=== PATIENT | male | born 1985 | race Caucasian/White ===

== ENCOUNTER 2018-06-08 12:27 | Outpatient (CLI) | payer OTHER ==
[~2018-06-08 12:27] MED LIST: GADOPENTETATE DIMEGLUMINE 5 ML VIAL IVP ONE; IOTHALAMATE MEGLUMINE 50 ML VIAL ONE
[2018-06-08] MEDS ORDERED: BUFFERED LIDOCAINE 10 ML SYRINGE IU ONE (13:31)
[2018-06-08] MEDS ORDERED: IOTHALAMATE MEGLUMINE 50 ML VIAL IVP ONE (13:31)
[2018-06-08] MEDS ORDERED: GADOPENTETATE DIMEGLUMINE 5 ML VIAL IVP ONE (13:31)
--- NOTE | 2018-06-08 15:43 | XRAY Report ---
Reason: PAIN IN UNSPECIFIED SHOULDER Procedure Date: 06/08/2018 Accession Number: [id number] / [id number] Procedure: FL - Arthrogram Needle Placement CPT Code: FULL RESULT: EXAM: LEFT SHOULDER ARTHROGRAPHIC INJECTION WITH FLUOROSCOPIC GUIDANCE EXAM DATE: 06/08/2018 12:37 PM. CLINICAL HISTORY: Left shoulder pain. COMPARISON: None. TECHNIQUE: The risks, benefits, and alternatives of the procedure were discussed with the patient. All questions were answered. Written and verbal consent were obtained. The glenohumeral joint was marked under fluoroscopy and prepped and draped in a sterile manner. Local anesthesia was performed with 1% lidocaine. A 22-gauge needle was then inserted into the glenohumeral joint. 10 mL of a solution containing 25% 1% lidocaine, 25% iodinated contrast, and a 1:200 dilution of gadolinium contrast in sterile saline was then injected. The needle was removed without immediate complication. Other: None. Fluoroscopy Time: 50 seconds. Number of Images: 1. FINDINGS: Bones and joints: No fracture or subluxation. Injection: Fluoroscopic images demonstrate needle placement and contrast in the glenohumeral joint. No contrast extravasation outside of the glenohumeral joint. IMPRESSION: Successful fluoroscopically-guided arthrographic injection of the shoulder. [facility]
--- NOTE | 2018-06-08 21:58 | MRI Report ---
Reason: PAIN IN UNSPECIFIED SHOULDER Procedure Date: 06/08/2018 Accession Number: [id number] / [id number] Procedure: MRI - Arthrogram Shoulder LT CPT Code: FULL RESULT: EXAM: LEFT SHOULDER MRI ARTHROGRAM WITH CONTRAST EXAM DATE: 06/08/2018 01:56 PM. CLINICAL HISTORY: Left shoulder pain. COMPARISON: None. TECHNIQUE: Multiplanar, multisequence T1-weighted and fluid-sensitive sequences of the shoulder after an arthrographic injection of dilute gadolinium, dictated under a separate exam. Other: None. FINDINGS: Acromioclavicular Region: The acromion is type I. The acromioclavicular joint is unremarkable. The coracoacromial and coracoclavicular ligaments are intact. There is no contrast or fluid in the subacromial/subdeltoid bursa. Glenohumeral Region: No subluxation. No loose bodies. The articular cartilage is unremarkable. The glenohumeral ligaments and joint capsule are unremarkable. Bone Marrow: Small bone island at the superior aspect of the humeral head. Tiny subcortical cysts at the posterior superior aspect of the humeral head. No acute fracture. Labrum: Contrast solution abnormally extends into the superior aspect of the labrum consistent with a type II SLAP tear. The remaining labrum is unremarkable. Biceps Tendon: The long head of the biceps tendon and biceps ainsley are intact. Musculature/Rotator Cuff: The subscapularis, supraspinatus, infraspinatus, and teres minor tendons are intact. Mild edema within the posterior aspect of the supraspinatus muscle. No muscle fatty atrophy. Other: The subcutaneous tissues are unremarkable. IMPRESSION: 1. SLAP type II tear of the labrum. 2. No rotator cuff tear. 3. Mild edema within the posterior aspect of the supraspinatus muscle which may represent strain or inflammation. [facility] MUSCULOSKELETAL RADIOLOGY SECTION
== END 2018-06-08 12:28 | disposition home or self-care (01) ==
LOC: DI 12:27
PROVIDERS: ATTEND Radiology Diagnostic Radiology
DX: S43.432A Superior glenoid labrum lesion of left shoulder, initial encounter (principal); R60.0 Localized edema
CPT/HCPCS: 23350; 73222; 77002; Q9961

== ENCOUNTER 2018-07-29 10:04 | Day surgery (SDC) | payer OTHER ==
--- NOTE | 2018-07-29 07:52 | ANESTHESIA ---
Pre-Anesthesia VS, & Labs - Diagnosis L shoulder biceps tendinitis, slap tear, lateral subscapularis tear - Procedure L shoulder arthroscopy with SLAP repair, open biceps tenodesis/possible subscapularis repair Height 69 ft Weight (kg) 88.45 kg - NPO >8 hours Home Medications and Allergies Home Medications: Ambulatory Orders Rabeprazole Sodium [Aciphex] 40 mg PO DAILY 07/22/18 Rabeprazole Sodium [Aciphex] 40 mg PO DAILY 07/22/18 Allergies/Adverse Reactions: Allergies Allergy/AdvReac Type Severity Reaction Status Date / Time Sulfa (Sulfonamide AdvReac Severe Nausea Verified 07/22/18 16:05 Antibiotics) Anes History & Medical History - Medical History Cardiovascular: reports: None Pulmonary: reports: None Gastrointestinal: reports: GERD Urinary: reports: None Musculoskeletal: reports: Other Endocrine/Autoimmune: reports: None Skin: reports: None Smoking Status: Never smoker - Surgical History General: Other Orthopedic: Shoulder arthroplasty Exam General: Alert, Oriented x3, Cooperative, No acute distress Dental: WNL Mouth Opening: Greater than 4 Fingerbreadths Neck Mobility: Normal Mallampati classification: II Thyromental Distance: 4-6 cm Respiratory: Lungs clear, Normal breath sounds, No respiratory distress Cardiovascular: Regular rate Neurological: Normal speech Mental/Cognitive Status: Alert/Oriented X3 Plan Anesthesia Type: Supraclavicular Block Regional Block: Per Surgeon's request for Post Op pain control Consent for Procedure(s) Verified and Reviewed: Yes Code Status: Attempt Resuscitation ASA classification: 2-Mild systemic disease Is this case an emergency?: No
[~2018-07-29 10:04] MED LIST changes: +BUPIVACAINE 0.25% PF 30 ML VIAL ONE; +EPINEPHrine 1 MG/ML AMP ONE; -GADOPENTETATE DIMEGLUMINE 5 ML VIAL IVP ONE; -IOTHALAMATE MEGLUMINE 50 ML VIAL ONE; +SODIUM CHLORIDE 0.9% 10 ML ONE; +cefTRIAXone 1 GM VIAL ONE
[2018-07-29] MEDS ORDERED: LACTATED RINGERS 1,000 ML IV ONE ×2 (10:09→12:34)
[2018-07-29] MEDS ORDERED: DEXAMETHASONE 4 MG/ML VIAL IVP ONE (11:00)
[2018-07-29] MEDS ORDERED: PROPOFOL 200 MG/20 ML VIAL IVP ONE (11:00)
[2018-07-29] MEDS ORDERED: NEOSTIGMINE 1 MG/1 ML 10 ML MDV IVP ONE (11:00)
[2018-07-29] MEDS ORDERED: ONDANSETRON 4 MG/2 ML VIAL IVP ONE (11:00)
[2018-07-29] MEDS ORDERED: GLYCOPYRROLATE 1 MG/5 ML VIAL IVP ONE (11:00)
[2018-07-29] MEDS ORDERED: ROPIVACAINE 0.5% PF 20 ML AMPULE EP ONE (11:00)
[2018-07-29] MEDS ORDERED: ROCURONIUM 50 MG/5 ML VIAL IVP ONE (11:00)
[2018-07-29] MEDS ORDERED: LIDOCAINE-MPF 2% 5 ML VIAL IM ONE (11:00)
[2018-07-29] MEDS ORDERED: fentaNYL 100 MCG/2 ML VIAL IVP ONE (11:00)
[2018-07-29] MEDS ORDERED: MIDAZOLAM 2 MG/2 ML VIAL IVP ONE (11:00)
--- NOTE | 2018-07-29 11:20 | OPERATIVE REPORT ---
Operative Report - General Planned Procedure: Left shoulder arthroscopy, open sub pec biceps tenodesis Pre-Op Diagnosis: Left shoulder SLAP tear, possible subscap tear Procedure Performed: Left shoulder arthroscopy, open sub-pec biceps tenodesis, SLAP debridement Post Op Diagnosis: Left shoulder SLAP tear - Procedure Note Primary Surgeon: Kristian Suarez MD Secondary Surgeon: Rogelio Paredes MD Anesthesia Technique: General LMA, Regional block Estimated Blood Loss (mL): 20 Complications: None - Other Other Information/Narrative: Indications: 32yo RHD M with a hx of left shoulder pain following injury. MRI and clinical exam consistent with SLAP tear/biceps tendinitis. He failed appropriate non-operative management and desired surgical treatment. He previously had a right SLAP tear surgically treated by a civilian provider in [place] in the past. Risks of surgery were discussed to include bleeding, infection, damage to nerves, vessels, cartilage, tendons and ligaments, cartilage, bone, postoperative stiffness, need for extensive rehabilitation, implant failure, implant irritation, possible intraoperative fracture, medication side effects and allergic reactions, anesthesia complications, as well as blood clots to include deep vein thrombosis, pulmonary embolus and even . After a long discussion, they wished to proceed. Preoperative examination under anesthesia: Forward flexion 175, abduction 170, external rotation 60, abducted external rotation 90, abducted internal rotation 90. Load and shift anterior grade 1, posterior grade 1, inferior negative. Arthroscopic findings: 1. Biceps: Inferior instability and biceps ainsley. 2. Superior labrum: Type II SLAP tear with degeneration/fraying 3. Anterior labrum: Intact 4. Posterior labrum: Intact 5. Rotator cuff: Normal 6. Chondral surfaces: Humeral head normal. Glenoid normal. 7. Capsule: Appropriate Implants: [employer] FiberTak all-suture anchor with #2 Fiberwire Procedure Details: The patient was met in the preoperative hold area. We discussed risks, benefits, and alternatives to surgery. We discussed the proposed procedure and reviewed the consent. Questions were answered. Consent was verified. The patient verified the surgical site as the left shoulder and it was initialed by myself. The patient then met with anesthesia and a regional block was performed. The patient was brought back to the operating room. The patient was transferred onto the operating table and placed into the supine position. A general anesthetic was administered and an LMA was placed. The patient was then positioned in the lateral position on a beanbag. An axillary roll was placed and all bony prominences were well-padded and the patient was well secured to the table. An examination under anesthesia was performed with the above-stated findings. The operative shoulder was then prepped and draped in the usual sterile fashion for orthopedic surgery. A surgical timeout was then performed. The correct patient, the correct procedure, and the correct surgical site were confirmed by everyone in the room. Preoperative antibiotics had been administered. The bony landmarks were marked with an indelible pen and an 11 blade scalpel was used to make a posterior arthroscopic portal. The arthroscope was introduced into the glenohumeral joint. An anterior rotator interval cannula was placed under direct visualization. A diagnostic arthroscopy was performed with the above-stated findings. Given the unstable SLAP tear and biceps tendinitis the arthroscopic biter was used to transect the biceps at its insertion on the superior labrum. The arthroscopic sucker shaver and ablation wand was used to debride the stump of biceps at the superior labrum. A sucker shaver was used to debride the SLAP tear. The camera was moved to the anterior portal and the posterior labrum was inspected and probed and found to be stable and well adherent to the glenoid rim. The arthroscopic fluid was drained from the shoulder and attention turned to the biceps tenodesis. A 3 cm longitudinal incision was laced at the inferior border of the pectoralis major tendon. Sharp and dull dissection was used to carry out the dissection down to the bicipital groove. With digital palpation the long head of biceps was identified and extracted from the incision. There was biceps tendinitis evident with visual inspection. The bicipital groove proximal to the inferior border of the pectoralis major tendon was scraped with a nichols elevator to incite a cortical bleeding response for healing. The FiberTak drill guide was placed into the groove and drilled, and the anchor was placed. One limb of the #2 Fiberwire in the anchor was then used to whipstich the biceps tendon 2 cm proximal to the musculotendinous junction. The second limb was then passed through the tendon and the redundant proximal tendon was sharpy debrided. The sutures were tensioned, drawing the tendon down to the bicipital groove. The biceps was secured in place with alternating half hitches of the #2 FiberWire. The length tension relationship of the long head of biceps was checked with digital palpation and was appropriate. All wounds were then copiously irrigated in preparation for closure. The biceps tenodesis incision was closed with 2-0 Vicryl in subcutaneous tissues followed by running buried 3-0 Monocryl for skin closure. The arthroscopic portals were closed with 3-0 Monocryl. The wounds were then cleaned and dried and covered with mastisol, steristrips and Xeroform. Local anesthetic was injected in the biceps tenodesis incision--this was 20ml of 0.25% Marcaine. The incisions were covered with plain gauze and ABD pads. Foam tape was used to secure the dressings in place. The surgical drapes were removed the patient was returned to supine position, extubated, and transferred to the hospital bed. The patient was then taken to the PACU for recovery in good condition. Postoperative plan: 1. The patient will be discharged from the same day surgery facility once discharge criteria has been met. Narcotics, stool softener, and an anti-nausea medication at been prescribed. 2. The patient will wear the sling for immobilization for a period of 4 weeks postoperatively. Codman exercises can begin on postoperative day 1. 3. The postoperative rehabilitation protocol will be subpectoral biceps tenodesis protocol 4. DVT prophylaxis will consist of early ambulation 5. The patient will return to clinic in 5 days for a wound check and dressing change and review of intraoperative findings.
[2018-07-29] MEDS ORDERED: BUPIVACAINE 0.25% PF 30 ML VIAL SUBQ ONE ×2 (12:12)
[2018-07-29] MEDS ORDERED: EPINEPHrine 1 MG/ML AMP IVP ONE (12:33)
[2018-07-29] MEDS ORDERED: oxyCODONE 5 MG TABLET PO PRN (13:49)
[2018-07-29] MEDS ORDERED: ONDANSETRON 4 MG/2 ML VIAL IVP PRN (13:49)
[2018-07-29] MEDS ORDERED: HYDROmorphone 0.5 MG/0.5 ML SYRINGE IVP PRN (13:49)
[2018-07-29] MEDS ORDERED: ACETAMINOPHEN 1,000 MG/100 ML 100 ML IV ONE (14:12)
[2018-07-29] MEDS ORDERED: oxyCODONE 5 MG TABLET ONE (14:13)
[2018-07-29 15:05] VITALS: BP 122/60
== END 2018-07-29 10:05 | disposition home or self-care (01) ==
LOC: SDS 10:04
PROVIDERS: ATTEND Orthopaedic Surgery
PROC: 0RBK4ZZ Excision of Left Shoulder Joint, Percutaneous Endoscopic Approach (ICD-10-PCS; principal; 2018-07-29 12:00)
PROC: 0LS20ZZ Reposition Left Shoulder Tendon, Open Approach (ICD-10-PCS; 2018-07-29 12:00)
DX: S43.432A Superior glenoid labrum lesion of left shoulder, initial encounter (principal); X50.0XXA Overexertion from strenuous movement or load, initial encounter; M75.22 Bicipital tendinitis, left shoulder; K21.9 Gastro-esophageal reflux disease without esophagitis; F17.220 Nicotine dependence, chewing tobacco, uncomplicated; Z79.891 Long term (current) use of opiate analgesic; Z79.1 Long term (current) use of non-steroidal anti-inflammatories (NSAID)
CPT/HCPCS: 23430; 29822; A9270; J0131; J7120

== ENCOUNTER 2018-09-21 12:51 | Emergency (ER) | payer OTHER ==
[2018-09-21] MEDS ORDERED: IBUPROFEN 400 MG TABLET PO STA (13:21)
[2018-09-21] MEDS ORDERED: ACETAMINOPHEN 325 MG TABLET PO STA (13:21)
--- NOTE | 2018-09-21 13:24 | ED Physician Documentation ---
History of Present Illness - Stated complaint Stated Complaint: KNEE PX - Chief complaint Chief Complaint: Ext Problem - Additonal information Additional information: hx from pt 33 male [place] to ED [facility] knee pain slipped on child toy and fell forward hyperflexing his knee as he landed pain to medial jt line and patella Review of Systems Musculoskeletal: reports: Joint pain PD PAST MEDICAL HISTORY - Past Medical History Cardiovascular: None Respiratory: None Endocrine/Autoimmune: None GI: GERD : None HEENT: None Psych: None Musculoskeletal: Other Derm: None - Past Surgical History Past Surgical History: Yes General: Other Ortho: Shoulder arthroplasty - Present Medications Home Medications: Ambulatory Orders Medication Instructions Recorded Confirmed Rabeprazole Sodium [Aciphex] 40 mg PO DAILY 07/22/18 07/29/18 - Allergies Allergies/Adverse Reactions: Allergies Allergy/AdvReac Type Severity Reaction Status Date / Time Sulfa (Sulfonamide AdvReac Severe Nausea Verified 09/21/18 13:10 Antibiotics) - Social History Does the pt smoke?: No Smoking Status: Never smoker Does the pt drink ETOH?: Yes - Immunizations Immunizations are current?: Yes - POLST Patient has POLST: No PD ED PE NORMAL - Vitals Vital signs reviewed: Yes - Cardiac Cardiac: RRR - Respiratory Respiratory: No respiratory distress - Extremities Extremities: Other (R knee + swelling, ballotable patella, TTP medial jt line, no ACL MCL LCL laxity, no pain pop catch wth meniscal tesing, extensor mechanism intact) - Neuro Neuro: No motor deficit, No sensory deficit Results - Vitals Vitals: Vital Signs - 24 hr 09/21/18 12:55 Temperature 36.4 C L Heart Rate 83 Respiratory 16 Rate Blood Pressure 133/79 H O2 Saturation 99 Oxygen O2 Source Room air - Rads (name of study) knee Radiology: See rad report (small effusion no fx) Departure - Departure Disposition: 01 Home, Self Care Clinical Impression: Knee effusion, right Condition: Good Instructions: ED Effusion Knee Follow-Up: [facility] [Provider Group] Comments: The bones are fine on xray. The exam does not indicate a ligament or meniscal injury. There is fluid in the knee joint which is likely due to inflammation from the injury This should resolve with time and rest Recommend ice elevation and an SCOTT wrap to decrease the swelling Crutches as needed to decrease weight bearing stress. Motrin for pain No PT running squatting etc for a week Follow up [facility] if not better in 2 weeks Forms: Activity restrictions
--- NOTE | 2018-09-21 14:45 | XRAY Report ---
Reason: hyperflex patella medial jt line pain Procedure Date: 09/21/2018 Accession Number: [id number] / [id number] Procedure: XR - Knee 4 View RT CPT Code: FULL RESULT: EXAM: RIGHT KNEE RADIOGRAPHY EXAM DATE: 09/21/2018 02:11 PM. CLINICAL HISTORY: Hyperflexed patella medial joint line pain. COMPARISON: None. TECHNIQUE: 3 views. FINDINGS: Bones: Normal. No fractures or bone lesions. Joints: There is a small joint effusion. No subluxation. Soft Tissues: Normal. No soft tissue swelling. IMPRESSION: Small joint effusion. [facility]
[2018-09-21 15:09] VITALS: BP 124/74
== END 2018-09-21 15:09 | disposition home or self-care (01) ==
LOC: ED 12:51
DX: M25.461 Effusion, right knee (principal); W18.31XA Fall on same level due to stepping on an object, initial encounter; X50.1XXA Overexertion from prolonged static or awkward postures, initial encounter
CPT/HCPCS: 73564; 99283; A9270